=== PATIENT | female | born 1980 | race Caucasian/White ===

== ENCOUNTER 2021-03-17 17:40 | Outpatient (REF) | payer OTHER, SELFPAY ==
[2021-03-19 00:37] LABS: COVID-19 RT-PCR UVMMC Result Negative (Negative)
== END 2021-03-17 17:41 | disposition home or self-care (01) ==
LOC: LBN 17:40
PROVIDERS: PCP Family Medicine; Visit Provider Nurse Practitioner Family
DX: Z20.822 Contact with and (suspected) exposure to COVID-19 (principal)
CPT/HCPCS: U0003

== ENCOUNTER 2022-07-25 16:17 | Outpatient (REF) | payer OTHER, SELFPAY ==
--- NOTE | 2022-07-25 15:30 | PAPFT_PTH ---
PATIENT: Saray Augustine LOC: [facility]#:[id number] AGE/SX: 42/F ROOM: RE07/25/[address]: Cely Pacheco : 1980 BED: DIS: 07/25/2022 SPEC #: [id number] RECD: 07/25/22 18:17 STATUS: RICHARD REAntonietta #: [id number] LISBETH: 07/25/22 15:[address]: Cely Pacheco DEPT: [facility] Cytology RECD BY: Rowan Barros ENTERED: 07/25/22 18:18 SP TYPE: PAPFT OTHR DR: Ellen Newman V Tissues: 1 - CX/ENDOCX FOR PAP SMEARS Procedures: PAP THIN PREP/UVM Screening HPV DNA PROBE Comments: [id number]
== END 2022-07-25 16:18 | disposition home or self-care (01) ==
LOC: NCHCN 16:17
PROVIDERS: PCP Family Medicine; Visit Provider Nurse Practitioner Family
DX: Z12.4 Encounter for screening for malignant neoplasm of cervix (principal); Z11.51 Encounter for screening for human papillomavirus (HPV)
CPT/HCPCS: 88142; 87624

== ENCOUNTER 2022-08-24 01:54 | Outpatient (CLI) | payer OTHER, SELFPAY ==
--- NOTE | 2022-08-24 | DI.MAMMO_ITS ---
Exam(s) MAMMO SCREENING EXAM: MAMMO SCREENING CLINICAL HISTORY: SCREENING FOR BREAST CANCER Z12.39 Z12.31. TECHNIQUE: Bilateral full field digital CC and MLO mammographic images were obtained with 3D tomosyn thesis and utilizing computer aided detection (CAD). COMPARISON: Prior outside 2018 mammogram and ultrasound were reviewed. FINDINGS: The fibroglandular tissue pattern is again noted dense. There are no CAD designations. No obvious new findings in the right breast. The left breast in the immediate retroareolar region the MLO 3D view there is a well-defined 2.4 by 1 .6 cm nodular density, not evident on the previous study. The previously present prominent nodular density more posteriorly in the left breast is no longer see n, this corresponding to finding on the ultrasound examination May 03, 2017. No malignant-appearing microcalcification groups in either breast There is no significant architectural distortion nor skin thickening-retraction. IMPRESSION: Dense bilateral fibroglandular tissue. No radiographic evidence of malignancy in the right breast. In the left breast the previously described nodular density which was also seen on ultrasound at that time is no longer seen but there is a similar size new findings in the immediate retroareolar region measuring approximately 2.4 x 1.6 cm. Spot compression view and ultrasound recommended. BI-RADS Category 0 - Assessment Incomplete: Need additional imaging evaluation Breast Density - Category C - Heterogeneously dense Breast density Category C or D implies that the patient has dense breast tissue. Dense breast tissue can make it harder to find cancer on a mammogram. Dense breast tissue is also associated with an incr eased risk of breast cancer. This information about the result of the mammogram report was provided to the patient to raise their awareness. Use this report when you speak with the patient about their risks for breast cancer, which includes their family history. At that time, you may recommend additional screening tests (Ultrasoun d or MRI) as these tests may add significant information. A negative radiographic report should not delay biopsy if a dominant or clinically suspicious mass is present. Up to ten percent of cancers are not identified on mammography. A negative report may reinforce clinical impression. Adenosis and dense breasts may obscure an underlying neoplasm. False positive reports average 6 to 10%. Patient will receive a letter notifying them of these results.
== END 2022-08-24 02:14 ==
PROVIDERS: PCP Family Medicine; Visit Provider Nurse Practitioner Family
DX: Z12.31 Encounter for screening mammogram for malignant neoplasm of breast (principal); R92.8 Other abnormal and inconclusive findings on diagnostic imaging of breast
CPT/HCPCS: 77063; 77067

== ENCOUNTER 2022-09-05 01:30 | Outpatient (CLI) | payer OTHER, SELFPAY ==
--- NOTE | 2022-09-05 | DI.US_ITS ---
Exam(s) MG MAMMO SCREEN CALL BACK UNI US BREAST LT COMPLETE EXAM: MG MAMMO SCREEN CALL BACK UNI-LEFT AND COMPLETE LEFT BREAST ULTRASOUND CLINICAL HISTORY: F/U MAMMO, R92.8,DENSE TISSUE,NEW FINDINGS LT BREAST. TECHNIQUE: Unilateral spot mammographic images obtained with 3D tomosynthesisand utilizing computer aided detection (CAD). . Complete LEFT breast Ultrasound was also performed, including all 4 quadrants, the retroareolar regio n, and the ipsilateral axilla. COMPARISON: Prior mammograms were reviewed. This additional imaging was performed due to findings described on the recent screening mammogram of 08/24/2022. FINDINGS: DIAGNOSTIC MAMMOGRAM: Additional SPOT mammographic views performed todaydo not dissipate finding. we proceeded with ultras ound COMPLETE LEFT BREAST ULTRASOUND: Ultrasound performed today reveals multiple cysts and microcysts.. At the central 10 o'clock positio n there is the finding which corresponds to the finding seen on the mammogram. This is a 2.7 x 0.8 c m snowman shaped benign cyst with no internal solid components nor septations. Smaller microcysts are evident at the 12 o'clock, 1 o'clock, 2 o'clock, and 6 o'clock and 9 o'clock p ositions At the 8 o'clock position there is a small benign-appearing conglomeration of microcysts. Most importantly, there are no solid lesions evident in the left breast. Scanning of the ipsilateral axilla reveals no significant adenopathy. IMPRESSION: 1. Benign breast findings, as described above. The finding on the recent screening mammogram corres ponds to a 2.7 x 0.7 cm benign cyst at the central 10 o'clock position. 2. Other microcysts as described above. No solid lesions. Appropriate follow-up is to keep this patient on her yearly mammogram schedule, with earlier imaging if a self detected breast change is noted. I also recommend this patient undergo bilateral breast u ltrasound at the time for next yearly mammogram. The patient was informed of these findings and recommendations by myself prior to leaving the departm ent today. BI-RADS Category 2 - Benign Findings Breast Density - Category C - Heterogeneously dense Breast density Category C or D implies that the patient has dense breast tissue. Dense breast tissue can make it harder to find cancer on a mammogram. Dense breast tissue is also associated with an incr eased risk of breast cancer. This information about the result of the mammogram report was provided to the patient to raise their awareness. Use this report when you speak with the patient about their risks for breast cancer, which includes their family history. At that time, you may recommend additional screening tests (Ultrasoun d or MRI) as these tests may add significant information. A negative radiographic report should not delay biopsy if a dominant or clinically suspicious mass is present. Up to ten percent of cancers are not identified on mammography. A negative report may reinforce clinical impression. Adenosis and dense breasts may obscure an underlying neoplasm. False positive reports average 6 to 10%. Patient will receive a letter notifying them of these results.
== END 2022-09-05 01:50 ==
LOC: DI 01:31
PROVIDERS: PCP Family Medicine; Visit Provider Nurse Practitioner Family
DX: Z12.31 Encounter for screening mammogram for malignant neoplasm of breast (principal); R92.8 Other abnormal and inconclusive findings on diagnostic imaging of breast
CPT/HCPCS: 76642; 77063; 77067

== ENCOUNTER 2023-08-17 02:23 | Outpatient (CLI) | payer OTHER, SELFPAY ==
[2023-08-17 13:19] LABS: Hemoglobin A1C 5.2 % (<5.7)
[2023-08-17 13:23] LABS: Calculated LDL 88 mg/dL (<100); Cholesterol 176 mg/dL (<200); HDL Cholesterol 82 mg/dL (40-60); Triglyceride 32 mg/dL (<150)
== END 2023-08-17 02:24 | disposition home or self-care (01) ==
LOC: LOS 02:23
PROVIDERS: PCP Family Medicine; Visit Provider Nurse Practitioner Family
DX: Z13.6 Encounter for screening for cardiovascular disorders (principal); Z13.1 Encounter for screening for diabetes mellitus
CPT/HCPCS: 36415; 80061; 83036

== ENCOUNTER → 2023-09-11 03:46 | Outpatient (CLI) | payer OTHER, SELFPAY ==
--- NOTE | 2023-09-11 | DI.US_ITS ---
Exam(s) US BREAST LT COMPLETE US BREAST RT COMPLETE EXAM: US BREAST BILATERAL COMPLETE CLINICAL HISTORY: MAMMOGRAPHIC BREAST DENSITY, DENSE BREASTS, R92.30. TECHNIQUE: Complete ultrasound of both breasts was performed including all 4 quadrants, the retroare olar regions, and the axillary regions. COMPARISON: Prior mammograms were reviewed. Prior ultrasounds were reviewed. Today's screening mammogram was also reviewed FINDINGS: Left breast ultrasound: There are multiple cysts and microcysts in all quadrants. The largest measures 2 by 0.8 cm and corre sponds to the finding described on the screening mammogram. At the 11 o'clock position there is a 1.3 by 0.7 cm finding which has appearance of a probable hemor rhagic microcyst, when compared to all the other more simple appearing cysts in the left breast. Right breast ultrasound: Multiple microcysts and conglomeration is microcysts noted in all quadrants. At the 11 o'clock position there is a wider than taller finding measuring 10 x 5 mm which is either a hemorrhagic microcyst or possible fibroadenoma. It exhibits slightly increased through transmission . No decreased through transmission. Scanning of both axillary regions is negative for significant adenopathy. IMPRESSION: Multiple bilateral benign cysts. However, there is 1 finding in each breast as described above which should undergo repeat ultrasound in 6 months. This is at the 11 o'clock position of the right breas t and at the 11 o'clock position of the left breast. Finding and recommendations were discussed by myself with the patient today. BI-RADS Category 3 - 6 month - Probably Benign Finding: Recommend follow-up ULTRASOUND in 6 months Breast Density - Category C - Heterogeneously dense Breast density Category C or D implies that the patient has dense breast tissue. Dense breast tissue can make it harder to find cancer on a mammogram. Dense breast tissue is also associated with an incr eased risk of breast cancer. This information about the result of the mammogram report was provided to the patient to raise their awareness. Use this report when you speak with the patient about their risks for breast cancer, which includes their family history. At that time, you may recommend additional screening tests (Ultrasoun d or MRI) as these tests may add significant information. A negative radiographic report should not delay biopsy if a dominant or clinically suspicious mass is present. Up to ten percent of cancers are not identified on mammography. A negative report may reinforce clinical impression. Adenosis and dense breasts may obscure an underlying neoplasm. False positive reports average 6 to 10%. Patient will receive a letter notifying them of these results.
--- NOTE | 2023-09-11 | DI.MAMMO_ITS ---
Exam(s) MAMMO SCREENING EXAM: MAMMO SCREENING CLINICAL HISTORY: SCREENING, Z12.31. TECHNIQUE: Bilateral full field digital CC and MLO mammographic images were obtained with 3D tomosyn thesis and utilizing computer aided detection (CAD). COMPARISON: Prior mammograms were reviewed. Ultrasounds reviewed. FINDINGS: Fibroglandular tissue pattern is again noted be dense, this somewhat decreasing the sensitivity of th e mammogram for finding hidden underlying lesions. In the left breast on 3D tomographic cc view there is a well-defined oval nodular density measuring a pproximately 1.9 x 1.4 cm as well as other smaller nodular densities seen on tomosynthesis. No obvious focal nodule seen in the right breast. No malignant-appearing microcalcification groups in either breast There is no significant architectural distortion nor skin thickening-retraction. IMPRESSION: Dense bilateral fibroglandular tissue. Suggestion of nodules as described above. This patient had bilateral complete breast ultrasound exam following this mammogram today. This reve aled full bilateral benign cysts as well as a few less cystic findings which are probably hemorrhagic microcysts and will be re-scanned with repeat ultrasound in 6 months. See that separate ultrasound dictation. The reports cannot be combined as this is not a diagnostic study. BI-RADS Category 3 - 6 month - Probably Benign Finding: Recommend follow-up mammography in 6 months Breast Density - Category C - Heterogeneously dense Breast density Category C or D implies that the patient has dense breast tissue. Dense breast tissue can make it harder to find cancer on a mammogram. Dense breast tissue is also associated with an incr eased risk of breast cancer. This information about the result of the mammogram report was provided to the patient to raise their awareness. Use this report when you speak with the patient about their risks for breast cancer, which includes their family history. At that time, you may recommend additional screening tests (Ultrasoun d or MRI) as these tests may add significant information. A negative radiographic report should not delay biopsy if a dominant or clinically suspicious mass is present. Up to ten percent of cancers are not identified on mammography. A negative report may reinforce clinical impression. Adenosis and dense breasts may obscure an underlying neoplasm. False positive reports average 6 to 10%. Patient will receive a letter notifying them of these results.
== END ==
PROVIDERS: PCP Family Medicine; Visit Provider Nurse Practitioner Family
DX: Z12.31 Encounter for screening mammogram for malignant neoplasm of breast (principal); R92.333 Mammographic heterogeneous density, bilateral breasts; R92.8 Other abnormal and inconclusive findings on diagnostic imaging of breast
CPT/HCPCS: 76642; 77063; 77067

== ENCOUNTER 2024-09-15 02:45 | Outpatient (CLI) | payer OTHER, SELFPAY ==
--- NOTE | 2024-09-15 | DI.MAMMO_ITS ---
Exam(s) MAMMO SCREENING EXAM: MAMMO SCREENING CLINICAL HISTORY: Screening Z12.31 TECHNIQUE: Mammograms were interpreted according to the usual protocol including computer analysis with CAD system, tomosynthesis and C-view imaging. COMPARISON: 2017 through 2023 FINDINGS: The breasts are composed of heterogeneously dense fibroglandular densities, Breast Density category C. No suspicious masses or suspicious microcalcifications are seen. No skin thickening or abnormal axillary lymph nodes are seen. There has been no significant change from prior exams. IMPRESSION: BI-RADS Category 1, Negative mammogram. Yearly screening mammography is recommended. Breast Density: Category C - The breasts are heterogeneously dense, which may obscure small masses. Breast density Category C or D implies that the patient has dense breast tissue. Dense breast tissue can make it harder to find cancer on a mammogram. Dense breast tissue is also associated with an increased risk of breast cancer. This information about the result of the mammogram report was provided to the patient to raise their awareness. Use this report when you speak with the patient about their risks for breast cancer, which includes their family history. At that time, you may recommend additional screening tests (Ultrasound or MRI) as these tests may add significant information. A negative radiographic report should not delay biopsy if a dominant or clinically suspicious mass is present. Up to ten percent of cancers are not identified on mammography. A negative report may reinforce clinical impression. Adenosis and dense breasts may obscure an underlying neoplasm. False positive reports average 6 to 10%.
== END 2024-09-15 03:05 ==
LOC: DI 02:45
PROVIDERS: PCP Family Medicine; Visit Provider Nurse Practitioner Family
DX: Z12.31 Encounter for screening mammogram for malignant neoplasm of breast (principal); R92.333 Mammographic heterogeneous density, bilateral breasts
CPT/HCPCS: 77063; 77067

== ENCOUNTER 2024-11-20 06:59 | Day surgery (SDC) | payer OTHER, SELFPAY ==
[2024-11-20 07:17] VITALS: BP 111/79; PULSE 93; RESP 18; TEMP 35.9; O2SAT 97
[2024-11-20] MEDS: Lactated Ringers 1,000 ML 80 ML IV (07:43)
--- NOTE | 2024-11-20 07:43 | ANES.PREOP_ITS ---
General Info Date of Service Date Performed: 11/20/24 Height: 5 ft 3 in Weight: 63.2 kg Body Mass Index (BMI): 24.7 Surgical Procedure: Operation Date: 11/20/24 08:20 Proposed Procedure Side Surgeon p Colonoscopy Rhoda Moreno MD Meds Allergies and Home Medications Allergies Allergy/AdvReac Type Severity Reaction Status Date / Time No Known Allergies Allergy Verified 11/20/24 07:16 Home Medication ?Medication ?Instructions ?Recorded acetylcysteine 600 mg capsule (NAC) 1,200 mg PO DAILY 10/29/24 bisacodyl 5 mg tablet,delayed 5 mg PO ONCE colonscopy bowel prep 10/29/24 release (Dulcolax (bisacodyl)) #4 tabs colestipol 1 gram tablet 1 g PO DAILY PRN diarrhea #1 4 tabs 10/29/24 polyethylene glycol 3350 17 238 g PO ONCE colonoscopy prep 10/29/24 gram/dose oral powder #238 grams Current Visit Medications: Current Medications Generic Name Dose Route Start Last Admin Trade Name Farhanq PRN Reason Stop Dose Admin Ringer's Solution 1,000 mls @ 80 mls/hr 11/20/24 06:00 IV 11/20/24 23:59 INFUSION TE IV Miscellaneous Supplies 1 each 11/20/24 06:00 Iv Access IV 11/20/24 23:59 DIRECTED TE Sodium Biphosphate/Sodium Phosphate 133 ml 11/20/24 06:00 Na Phosphate Enema-Adult 133 Ml Btl VA 11/20/24 23:59 DIRECTED TE Sodium Chloride 0 ml 11/20/24 06:00 Normal Saline Flush 10 Ml Syr IV 11/20/24 23:59 PRN PRN Sodium Chloride 0 ml 11/20/24 06:00 Normal Saline 10 Ml Vial IJ 11/20/24 23:59 DIRECTED PRN Sterile Water 0 ml 11/20/24 06:00 Water,Injection,Sterile 10 Ml Vial IJ 11/20/24 23:59 DIRECTED PRN PFSH Medical History Medical History Breast lump Surgical History Surgical History Hx of knee surgery (~1993) meniscus repair in 1993 S/P ACL reconstruction (~2001) H/O wisdom tooth extraction Cholecystectomy (03/30/15) DR. GIANA ANDUJAR Tobacco Smoking/Tobacco Use Status: Never Passive smoking exposure: No Alcohol Alcohol Intake: never Substance Use Substance use: Never Substance use type: does not use Vital Signs and Lab Results Vital Signs Most Recent Vital Signs in EMR: Most Recent Vital Signs Temp Pulse Resp BP Pulse Ox 35.9 C L 93 H 18 111/79 97 11/20/24 07:17 11/20/24 07:17 11/20/24 07:17 11/20/24 07:17 11/20/24 07:17 Point of Care Results Point of Care Results: POC- Test(urine) Negative 11/20/24 07:28 Anesthesia Assessment and Plan Anesthesia History Personal History: No History of Anesthesia Complications Family History: No Family History of Anesthesia Complications Exercise Tolerance Exercise Tolerance: Metabolic Equivalents>4 Pertinent Negatives Pertinent Negatives: No Symptoms of GERD Cardiac & Pulmonary Exam Cardiac Exam: Normal S1/S2 Heart Sounds Pulmonary Exam: Clear Bilateral Breath Sounds Implantable Cardiac Device Does patient have a Pacemaker or an ICD?: No Airway Exam Known Difficult Airway: No Mallampati Class: 1 Mouth Opening: Normal (> 3cm) Thyromental Distance: Greater than 3 cm Neck Range of Motion: Full ROM Neck Circumference: Normal Teeth Condition: Normal Dentition ASA Classification ASA Score: ASA 1 Emergency Case?: No NPO Status NPO Status: NPO Clears >2 hours, Solids >8 hours Status Status: Negative HCG Anesthesia Plan Resuscitation Status: Full Code Anesthesia Technique: General Anesthesia Airway Planned: Natural Airway Monitors Used: Standard Monitors
[2024-11-20 07:44] VITALS: BMI 24.7
--- NOTE | 2024-11-20 08:04 | W.PM.DSUDISC ---
Date of service: 11/20/24 Discharge Plan Disposition Patient Disposition: Home Condition: Stable Discharge Details Attending Provider: Rhoda Moreno Primary Care Provider: Ellen Newman V Recommendations for Follow Up Recommended tests to be ordered by follow up provider: Next screening colonoscopy is due in 10 years. Home Meds and New Rx's Prescriptions: Discontinued bisacodyl [Dulcolax (bisacodyl)] 5 mg tablet,delayed release (DR/EC) 5 mg PO ONCE Qty: 4 0RF Rx Instructions: take per colonoscopy instructions polyethylene glycol 3350 17 gram/dose powder 238 g PO ONCE Qty: 238 0RF Rx Instructions: take per colonoscopy instructions No Action acetylcysteine [NAC] 600 mg capsule 1,200 mg PO DAILY colestipol 1 gram tablet 1 g PO DAILY PRN (Reason: diarrhea) Qty: 14 0RF Discharge Instructions Additional Instructions: Normal colonoscopy. Zero polyps. Next screening colonoscopy is due in 10 years. Stand Alone Forms: Anesthesia Discharge Inst., Colonoscopy Post Instructions, Simon Fernandez (DSU) Activity:: Activity as Tolerated Diet:: As Tolerated Discharge Orders Discharge Orders: Discharge Order (Routine); Ordered 11/20/24 Ordered By: Rhoda Moreno
--- NOTE | 2024-11-20 08:05 | W.COLOREPORT ---
Date of service: 11/20/24 Time of Service: 08:31 Colonoscopy Report Date of procedure: 11/20/24 Pre-op diagnosis general: Screening for colorectal cancer Post-op diagnosis procedure note: same Procedure: Colonoscopy Surgeon: Rhoda Moreno Anesthesia Type: General:No Airway Estimated blood loss (mL): 0 Pathology: none sent Complications: None Indications: screening for colorectal cancer Prep: Miralax/Dulcolax (excellent) Procedure Description: Patient is here for routine screening colonoscopy. Informed consent was obtained and the patient was taken to the procedure area. The patient was placed in left lateral decubitus position on the procedure table. Timeout was performed. Anesthesia was induced. A lubricated colonoscope was inserted through the anus and passed to the cecum. The cecum was identified by the ileocecal valve and the appendiceal orifice. The scope was then slowly withdrawn and the colonic and rectal mucosa examined. There are no colon or rectal mass lesions, polyps, AVMs. There is no inflammatory change. No diverticulosis was seen. The scope was retroflexed in the anorectal junction examined. Uncomplicated internal hemorrhoids present. Assessment and plan; Normal screening colonoscopy. Average risk patient. Next screening colonoscopy will be due in 10 years.
[2024-11-20 08:36] VITALS: BP 86/64; PULSE 79; RESP 12; TEMP 36.6; O2SAT 98
--- NOTE | 2024-11-20 09:14 | W.ANESPOSTOP ---
Postoperative Evaluation Date, Time and Location Date Performed: 11/20/24 Time Performed: 09:14 Patient Location: Day Surgery Unit Vital Signs Most Recent Imported Vital Signs: Most Recent Vital Signs Temp Pulse Resp BP Pulse Ox 36.6 C 79 12 86/64 L 98 11/20/24 08:36 11/20/24 08:36 11/20/24 08:36 11/20/24 08:36 11/20/24 08:36 Pain Score Most Recent Pain Score: Most Recent Pain Score Pain Level 0 11/20/24 08:36 Assessment Mental Status: Awake (Alert & Oriented to Patient Baseline) Airway and Respiratory Function: Patent airway with normal (patient baseline) respiratory exam Cardiovascular Function: Hemodynamically Stable Hydration Status: Adequately Hydrated Nausea & Vomiting: No Nausea or Vomiting Pain: Pt. Denies Any Pain Peripheral Nerve Block: Patient did not receive a nerve block
== END 2024-11-20 09:19 | disposition home or self-care (01) ==
PROVIDERS: PCP Family Medicine; Visit Provider Surgery
PROC: 0DJD8ZZ Inspection of Lower Intestinal Tract, Via Natural or Artificial Opening Endoscopic (ICD-10-PCS; CPT 45378; principal; 2024-11-20 08:15)
DX: Z12.11 Encounter for screening for malignant neoplasm of colon (principal); K64.8 Other hemorrhoids
CPT/HCPCS: 45378; J2704